=== PATIENT | female | born 1970 | race African-American/Black ===

== ENCOUNTER 2017-02-19 17:16 | Emergency (ER) | payer MEDICAID, SELFPAY ==
[2017-02-19] MEDS ORDERED: Lorazepam 2 MG/ML VIAL ONE (17:26)
== END 2017-02-19 18:36 | disposition home or self-care (01) ==
LOC: NAV ERS 17:16
DX: F41.9 Anxiety disorder, unspecified (principal)
CPT/HCPCS: 96372; J2060

== ENCOUNTER 2017-10-01 13:50 | Emergency (ER) | payer OTHER | END 2017-10-01 14:56 | disposition home or self-care (01) | LOC: NAV ERS 13:50 | DX: N36.8 Other specified disorders of urethra (principal) | CPT/HCPCS: 51703 ==

== ENCOUNTER 2022-05-19 16:29 | Outpatient (CLI) | payer OTHER | END 2022-05-19 16:30 | disposition home or self-care (01) | LOC: NAV RAD 16:29 | PROVIDERS: ATTEND Nurse Practitioner Family | DX: S89.91XA Unspecified injury of right lower leg, initial encounter (principal); M25.461 Effusion, right knee ==

== ENCOUNTER 2023-12-10 13:07 | Emergency (ER) | payer OTHER ==
[2023-12-10] MEDS ORDERED: predniSONE 20 MG TAB ONE (13:26)
[2023-12-10] MEDS ORDERED: diphenhydrAMINE 25 MG CAP ONE (13:26)
== END 2023-12-10 13:50 | disposition home or self-care (01) ==
LOC: NAV ERS 13:07
DX: T78.40XA Allergy, unspecified, initial encounter (principal)
CPT/HCPCS: 99284; J7512

== ENCOUNTER 2024-11-26 13:51 | Emergency (ER) | payer OTHER ==
[2024-11-26] MEDS ORDERED: Sodium Chloride 0.9% 1,000 ML ONE (14:57)
[2024-11-26] MEDS ORDERED: Acetaminophen 500 MG TAB ONE (14:57)
[2024-11-26 15:04] LABS: #Basophils 0.1 thou/uL (0.0-0.2); #Lymphocytes 0.7 thou/uL (1.20-3.40); #Monocytes 0.7 thou/uL (0.11-0.59); #Neutrophils 11.8 thou/uL (1.40-6.50); %Basophils 0.6 % (0.0-1.0); %Lymphocytes 5.5 % (21.0-51.0); %Monocytes 5.3 % (0.0-10.0); %Neutrophils 88.6 % (42.0-75.0); Hematocrit 41.4 % (36.0-47.0); Hemoglobin 13.4 g/dL (12.0-16.0); Mean Corpuscular HGB CONC 32.2 g/dL (32.0-36.0); Mean Corpuscular Hemoglobin 27.7 pg (27.0-31.0); Mean Platelet Volume 10.6 fL (7.4-10.4); Platelet Count 199 10x3/uL (130-400); RBC Distribution Width 12.7 % (11.5-14.5); Red Blood Cell (RBC) Count 4.82 mill/uL (4.20-5.40); White Blood Cell (WBC) Count 13.3 10x3/uL (4.8-10.8)
[2024-11-26 15:20] LABS: ALT (SGPT) 38 U/L (Less than 34); AST (SGOT) 20 U/L (11-34); Albumin 3.6 g/dL (3.1-4.5); Alkaline Phosphatase 97 U/L (40-110); Anion Gap 14 mmol/L (10-20); BUN (Urea Nitrogen) 14 mg/dL (9.8-20.1); Calc. Creatinine Clearance 0 mL/min (70-130); Calcium 8.9 mg/dL (7.8-10.44); Carbon Dioxide 18 mmol/L (22-29); Chloride 106 mmol/L (98-107); Estimated GFR 104; Globulin 3.3 g/dL (2.4-3.5); Glucose 126 mg/dL (70-105); Protein, Total 6.9 g/dL (6.0-8.3); Sodium 135 mmol/L (136-145)
[2024-11-26 15:31] LABS: Clarity Slightly Cloudy (Clear); pH, Urine 5.5 (5.0-9.0)
[2024-11-26 15:35] LABS: Bilirubin Unable to Interpret (Negative); Blood, Urine Unable to Interpret (Negative); Glucose, Urine (Dipstick) Unable to Interpret mg/dL (Negative); Ketone, Urine Unable to Interpret mg/dL (Negative); Leukocyte Unable to Interpret (Negative); Nitrite Unable to Interpret (Negative); Protein, Urine (Dipstick) Unable to Interpret mg/dL (Neg-Trace); Urobilinogen UNABLE TO INTERPRET mg/dL (Less than 2)
[2024-11-26 15:44] LABS: Bacteria/HPF 3+ HPF (None Seen); CAUTI Indications for Culture Fever or rigors; RBC/HPF 0-3 HPF (0-3); Renal Epithelial 0-3 HPF (None Seen); Squamous Epithelial 0-3 HPF (0-3); Transitional Epithelial 0-3 HPF (None Seen); WBC/HPF Greater than 50 HPF (0-3)
[2024-11-26 15:45] LABS: Urine Culture Reflex Yes Yes
[2024-11-26] MEDS ORDERED: Cipro 250 MG TAB ONE (16:52)
== END 2024-11-26 17:00 | disposition home or self-care (01) ==
LOC: NAV ERS 13:51
DX: N39.0 Urinary tract infection, site not specified (principal); B34.9 Viral infection, unspecified; E11.9 Type 2 diabetes mellitus without complications; Z79.84 Long term (current) use of oral hypoglycemic drugs
CPT/HCPCS: 51701; 71045; 80053; 81001; 83605; 85025; 87077; 87086; 87428; 96360; J7030

== ENCOUNTER 2024-12-29 07:53 | Emergency (ER) | payer OTHER ==
[2024-12-29] MEDS ORDERED: Sodium Chloride 0.9% 1,000 ML ONE (08:09)
[2024-12-29 08:20] LABS: #Basophils 0.1 thou/uL (0.0-0.2); #Neutrophils 11.8 thou/uL (1.40-6.50); %Basophils 0.5 % (0.0-1.0); %Lymphocytes 7.4 % (21.0-51.0); %Neutrophils 85.1 % (42.0-75.0); Hematocrit 46.7 % (36.0-47.0); Hemoglobin 15.6 g/dL (12.0-16.0); Mean Corpuscular HGB CONC 33.5 g/dL (32.0-36.0); Mean Corpuscular Hemoglobin 28.6 pg (27.0-31.0); Mean Corpuscular Volume 85.6 fl (78.0-98.0); Mean Platelet Volume 9.3 fL (7.4-10.4); Platelet Count 204 10x3/uL (130-400); RBC Distribution Width 12.8 % (11.5-14.5); Red Blood Cell (RBC) Count 5.46 mill/uL (4.20-5.40); White Blood Cell (WBC) Count 13.9 10x3/uL (4.8-10.8)
[2024-12-29] MEDS ORDERED: Ketorolac Tromethamine 30 MG (1 mL) VIAL ONE (08:21)
[2024-12-29 08:24] LABS: Bilirubin Small (Negative); Blood, Urine Trace (Negative); Clarity Clear (Clear); Glucose, Urine (Dipstick) 100 mg/dL (Negative); Ketone, Urine > or equal to 80 mg/dL (Negative); Leukocyte Trace (Negative); Nitrite Positive (Negative); Protein, Urine (Dipstick) 100 mg/dL (Neg-Trace); Specific Gravity, Urine 1.015 (1.005-1.030)
[2024-12-29] MEDS ORDERED: LevoFLOXacin 750 mg/D5W 150 ml Premix Bag ONE (08:28)
[2024-12-29 08:41] LABS: Troponin I Less than 0.010 ng/mL (< 0.028)
[2024-12-29 08:42] LABS: ALT (SGPT) 29 U/L (Less than 34); AST (SGOT) 20 U/L (11-34); Albumin 4.2 g/dL (3.1-4.5); Alkaline Phosphatase 110 U/L (40-110); Anion Gap 17 mmol/L (10-20); BUN (Urea Nitrogen) 7 mg/dL (9.8-20.1); Bilirubin, Total 1.3 mg/dL (0.3-1.2); Calc. Creatinine Clearance 0 mL/min (70-130); Calcium 9.6 mg/dL (7.8-10.44); Carbon Dioxide 17 mmol/L (22-29); Chloride 108 mmol/L (98-107); Estimated GFR 104; Globulin 3.8 g/dL (2.4-3.5); Glucose 150 mg/dL (70-105); Potassium 3.9 mmol/L (3.5-5.1); Sodium 138 mmol/L (136-145)
[2024-12-29 08:56] LABS: Bacteria/HPF 3+ HPF (None Seen); CAUTI Indications for Culture Pelvic or flank pain; RBC/HPF 0-3 HPF (0-3)
[2024-12-29 09:03] LABS: Urine Culture Reflex Yes Yes
[2024-12-29] MEDS ORDERED: Nitrofurantoin Monohyd/M-Cryst 100 MG CAP ONE (09:28)
== END 2024-12-29 09:58 | disposition home or self-care (01) ==
LOC: NAV ERS 07:53
DX: N39.0 Urinary tract infection, site not specified (principal); N20.9 Urinary calculus, unspecified; E11.9 Type 2 diabetes mellitus without complications
CPT/HCPCS: 36415; 74176; 80053; 81001; 83605; 84484; 85025; 87040; 87077; 87086; 87149; 87186; 96365; 96375; J1885; J1956; J7030

== ENCOUNTER 2025-10-06 16:19 | Outpatient (CLI) | payer OTHER | END 2025-10-06 16:20 | disposition home or self-care (01) | LOC: NAV RAD 16:19 | PROVIDERS: ATTEND Nurse Practitioner Family | DX: L72.9 Follicular cyst of the skin and subcutaneous tissue, unspecified (principal) | CPT/HCPCS: 70250 ==